=== PATIENT | female | born 1985 | race Caucasian/White ===

== ENCOUNTER → 2017-08-13 | Outpatient (CLI) | payer OTHER ==
[~2017-08-13] MED LIST: ACYC1CAP16 PO; DOCO200C PO
--- NOTE | 2017-08-13 10:28 | RADRPT ---
EXAM DATE/TIME: 08/13/2017 09:24 [place] COMPARISON: No previous studies available for comparison. INDICATIONS : Right upper quadrant pain. MEDICAL HISTORY : Right upper quadrant pain. SURGICAL HISTORY : None. ENCOUNTER: Initial ACUITY: 1 year PAIN SCORE: 2/10 LOCATION: Right upper quadrant TECHNOLOGIST IMPRESSION: MEASUREMENTS: LIVER: 14.0 cm length COMMON DUCT: 3 mm RIGHT KIDNEY: 10.1 x 5.0 x 4.7 cm FINDINGS: LIVER: Normal echotexture without focal lesion or ductal dilatation. COMMON DUCT: No intraluminal mass or stone visualized. GALLBLADDER: The gallbladder wall appears to be mildly thickened. There is a small echogenic wall adherent focus i n the neck region which may be a tiny polyp measuring about 3-4 mm in size. There appears to be minim al sludge present. PANCREAS: The visualized portions are within normal limits. RIGHT KIDNEY: No evidence of hydronephrosis, stone, or mass. CONCLUSION: Abnormal gallbladder appearance Felix Fragoso MD on August 13, 2017 at 10:17 Board Certified Radiologist. This report was verified electronically.
== END ==
LOC: HRAD 08:56
PROVIDERS: ATTEND Family Medicine
DX: K82.9 Disease of gallbladder, unspecified (principal)
CPT/HCPCS: 76705